=== PATIENT | female | born 1940 | race Caucasian/White ===

== ENCOUNTER → 2020-01-11 | Outpatient (CLI) | payer MEDICARE, OTHER | END | disposition home or self-care (01) | LOC: RAD 18:37 | PROVIDERS: ATTEND Family Medicine | DX: K72.90 Hepatic failure, unspecified without coma (principal); K76.0 Fatty (change of) liver, not elsewhere classified; I25.10 Atherosclerotic heart disease of native coronary artery without angina pectoris; Z90.49 Acquired absence of other specified parts of digestive tract; N28.1 Cyst of kidney, acquired; M51.37 Other intervertebral disc degeneration, lumbosacral region; M48.57XA Collapsed vertebra, not elsewhere classified, lumbosacral region, initial encounter for fracture; N28.9 Disorder of kidney and ureter, unspecified | CPT/HCPCS: 36415; 74176; 82565 ==

== ENCOUNTER 2020-02-09 12:47 | Emergency (ER) | payer MEDICARE, OTHER ==
[~2020-02-09] VITALS: Ht 165.1 cm; Wt 48.2 kg
[2020-02-09 13:48] LABS: BASOPHILS # (AUTO) 0.05 x10^3/uL (0-0.1); BASOPHILS % (AUTO) 1 % (0-1); EOSINOPHILS # (AUTO) 0.06 x10^3/uL (0-0.4); EOSINOPHILS % (AUTO) 1 % (1-7); LYMPHOCYTES # (AUTO) 3.02 x10^3/uL (1-3.4); LYMPHOCYTES % (AUTO) 33 % (22-44); MD NO; MEAN CORPUSCULAR HGB CONC 32.1 g/dL (32.4-35.8); MEAN CORPUSCULAR VOLUME 93.3 fL (80-100); MEAN PLATELET VOLUME 7.6 fL (7.4-10.4); MONOCYTES # (AUTO) 0.82 x10^3/uL (0.2-0.8); MONOCYTES % (AUTO) 9 % (2-9); NEUTROPHILS # (AUTO) 5.35 x10^3/uL (1.8-6.8); NEUTROPHILS % (AUTO) 58 % (42-75); PLATELET COUNT 329 x10^3/uL (130-400); RED BLOOD COUNT 3.74 x10^6/uL (3.82-5.3); RED CELL DISTRIBUTION WIDTH 13.6 % (9.6-15.2)
[2020-02-09 14:01] LABS: ALBUMIN 3.1 g/dL (3.4-5.0); ANION GAP 7 mmol/L (5-15); CALCIUM 9.3 mg/dL (8.5-10.1); CHLORIDE 106 mmol/L (98-107); CREATININE 1.42 mg/dL (0.55-1.02)
--- NOTE | 2020-02-09 14:17 | NUR ---
pt presents to ED with c/o longstanding urinary retention/leakage, pt states these sx have been present approx 1 year. pt notes constipation, also chronic, lbm yesterday. pt was seen by pcp this pm and sent to ED for bladder scan and yates. bladder scan completed post void, 425 mL. MD Davila notified, ordered RN to insert 2 way yates cath. Yates cath inserted, witnessed by SANDY Segura. pt cleansed prior to insertion with theraworx per policy. sterile technique maintained. pt reports relief of bladder distention, tolerated insertion well. urine sent to lab. yates cath draining yellow urine freely, clots and sediment noted. bp and spo2 monitors in place, call light in reach. awaiting lab/urine results and dispo.
[2020-02-09 14:31] LABS: MICROSCOPIC INDICATED
--- NOTE | 2020-02-09 14:57 | NUR ---
Report received from SANDY Connor. Mary checked, draining well. Awaiting lab work, then recheck with ERP.
--- NOTE | 2020-02-09 15:02 | NUR ---
report given to SANDY Mo at bedside. pt a&o, resps even and unlabored, nadn. bp and so2 monitors in place. all results back, chart up for recheck, awaiting MD and dispo.
[2020-02-09 15:24] VITALS: BP 126/54
[2020-02-09] MEDS ORDERED: CEFDINIR 300 MG CAPSULE ONE (15:39)
--- NOTE | 2020-02-09 15:41 | NUR ---
Patient medicated per emar, tolerated well.
[2020-02-09] MEDS ORDERED: CEFDINIR 300 MG CAPSULE PO ONE (16:00)
--- NOTE | 2020-02-09 17:00 | NUR ---
LATE ENTRY DUE TO PATIENT CARE: GORDON BAG SWITCHED TO LEG BAG, UPON STADING UP PATIENT REPORTS LARGE AMOUNT OF PAIN. PATIENT PLACED BACK IN [facility], NOTIFIED ERP. MD NAOMI INSTRUCTED TO IRRIGATE BLADDER, THEN RECHECK. BLADDER IRRIGATED WITH APPROXIMATELY 500CC STERILE SALINE, LARGE CLOTS REMOVED FROM BLADDER, PATIENT STILL HAS HEMATURIA, BUT NO CLOTS VISUALIZED AFTER IRRIGATION. WILL NOTIFY ERP, PATIENT STILL REPORTS PAIN WITH CATHETER
--- NOTE | 2020-02-09 17:15 | NUR ---
ERP TO ROOM FOR RE-EVALUATION. UPON REASSESSMENT, ERP, PATIENT, AND THIS RN AGREE UPON BEST COURSE OF ACTION IS TO TAKE CATHETER OUT DUE TO UNBARABLE PAIN.
--- NOTE | 2020-02-09 17:24 | NUR ---
GORDON REMOVED, PATIENT TOLERATED WELL. PAITENT STATES IMPROVEMENT OF PAIN IMMEDIATELY. WILL CONTINUE TO MONITOR PAITENT TO URINATE ON OWN BEFORE DC
--- NOTE | 2020-02-09 17:56 | NUR ---
PATIENT GIVEN PO FLUIDS TO ASSIST IN URGE TO URINATE ON OWN
--- NOTE | 2020-02-09 18:10 | NUR ---
PATIETN AMBULATORY WITH STEADY GAIT TO RESTROOM TO ATTEMPT TO URINATE
--- NOTE | 2020-02-09 18:22 | NUR ---
PATIENT ABLE TO URINATE ON OWN, GIVEN DISCHARGE INSTRUCTIONS AND INFO ON FOLLOW UP APPT. PATIENT CONFIRMS UNDERSTANDING, AND KNOWS TO RETURN TO ER IF UNABLE TO URINATE ON OWN. AMBULATORY WITH STEADY GAIT TO DISCHARGE WITH FAMILY MEMBER
== END 2020-02-09 18:24 | disposition home or self-care (01) ==
LOC: ED 14:26
DX: N30.01 Acute cystitis with hematuria (principal); R33.9 Retention of urine, unspecified; R30.0 Dysuria
CPT/HCPCS: 36415; 51702; 80048; 81001; 82040; 85025; 87086; 99284

== ENCOUNTER 2020-03-07 10:58 | Inpatient (IN) | payer MEDICARE, OTHER ==
[~2020-03-07] VITALS: Ht 165.1 cm; Wt 50.8 kg
--- NOTE | 2020-03-07 11:19 | NUR ---
Pt having intermittent n/v/d and fevers onset 2 weeks ago, seen at urgent care 1 week ago and given immodium, per family, pt has been intermittently altered and lethargic , recent uti several weeks ago, finished course of abx.Pt is a&ox4 at this time. Last dose of antipyretics yesterday. Pt in bed in gown with cont spo2, bpq 30 min. PA at bedside.
[2020-03-07 12:09] LABS: MEAN CORPUSCULAR HEMOGLOBIN 29.4 pg (27.0-34.8); MEAN PLATELET VOLUME 8.2 fL (7.4-10.4); PLATELET COUNT 420 x10^3/uL (130-400); RED BLOOD COUNT 3.18 x10^6/uL (3.82-5.3); RED CELL DISTRIBUTION WIDTH 13.8 % (9.6-15.2)
--- NOTE | 2020-03-07 12:09 | NUR ---
UA CATH DONE AND WALKED TO LAB
[2020-03-07 12:18] LABS: ALANINE AMINOTRANSFERASE 25 U/L (12-78); ALBUMIN 2.1 g/dL (3.4-5.0); ANION GAP 10 mmol/L (5-15); CALCIUM 8.6 mg/dL (8.5-10.1); CHLORIDE 93 mmol/L (98-107); CREATININE 4.05 mg/dL (0.55-1.02)
[2020-03-07 12:21] LABS: ALKALINE PHOSPHATASE 137 U/L (45-117); BILIRUBIN,TOTAL 0.4 mg/dL (0.2-1.0); TOTAL PROTEIN 6.8 g/dL (6.4-8.2)
[2020-03-07 12:24] LABS: MICROSCOPIC INDICATED
[2020-03-07 12:29] LABS: MD YES
[2020-03-07] MEDS ORDERED: SODIUM CHLORIDE 0.9% 1,000ML IVBOLUS ONE ×2 (12:30→13:00)
[2020-03-07] MEDS ORDERED: SODIUM CHLORIDE FLUSH 10ML SYR IVF ONE (12:30)
[2020-03-07 12:31] LABS: <PLATELET ESTIMATE> ADEQUATE; <PLT MORPHOLOGY> NORMAL PLT MORPH; <RBC MORPHOLOGY> NORMAL; BAND#(MANUAL) 0.89 x10^3/uL; BANDS%(MANUAL) 3 % (0-7); LYMPH#(MANUAL) 1.19 x10^3/uL (1-3.4); LYMPHS% (MANUAL) 4 % (22-44); METAMYELOCYTES% (MANUAL) 1 % (0-1); MONOS#(MANUAL) 0.89 x10^3/uL (0.3-2.7); MONOS% (MANUAL) 3 % (2-9); SEG#(MANUAL) 26.52 x10^3/uL (1.8-6.8); SEGS% (MANUAL) 89 % (42-75); TOXIC GRAN 1+
--- NOTE | 2020-03-07 12:32 | NUR ---
ct at [facility]-feel unsafe to preceed with cta as creatinine if 4. video technician to talk to Provider
--- NOTE | 2020-03-07 12:36 | NUR ---
to ct scan Addendum: 03/07/20 at [email or web address] without contrast
[2020-03-07] MEDS ORDERED: CEFTRIAXONE PMX 1GM/50ML 50 ML IVPB ONE (13:00)
[2020-03-07] MEDS ORDERED: CEFTRIAXONE PMX 1GM/50ML 50 ML ONE (13:28)
--- NOTE | 2020-03-07 14:21 | NUR ---
MEDICATED PER EMAR WITH ABX (2 BLOOD CULTURES ALREADY DRAWN) WELL ADDITIONAL 1L NS
--- NOTE | 2020-03-07 15:10 | NUR ---
1300ML OF FOAMY/CREAMY URINE NOTED WITH GORDON PLACEMENT
[2020-03-07] MEDS ORDERED: hydrALAzine 20 MG/ML, 1ML IVPush PRN (16:30)
[2020-03-07] MEDS ORDERED: POLYETHYLENE GLYCOL 17 GM PACKET PO PRN (16:30)
[2020-03-07] MEDS ORDERED: ACETAMINOPHEN 325 MG TABLET PO PRN (16:30)
[2020-03-07] MEDS ORDERED: BISACODYL 10 MG SUPP PR PRN (16:30)
[2020-03-07] MEDS ORDERED: ONDANSETRON ODT 4 MG PO PRN (16:30)
[2020-03-07] MEDS ORDERED: ONDANSETRON 2MG/ML, 2ML IVPush PRN (16:30)
[2020-03-07] MEDS ORDERED: MORPHINE SULFATE 4 MG/ML, 1ML IVPush PRN (16:30)
[2020-03-07] MEDS ORDERED: HYDROcodone/APAP 5/325 TABLET PO PRN (16:30)
[2020-03-07 16:49] LABS: % IRON SATURATION 8 % (20-55); IRON LEVEL 14 mcg/dL (50-170); TOTAL IRON BINDING CAPACITY 186 mcg/dL (250-450)
[2020-03-07] MEDS ORDERED: POTASSIUM CHLORIDE 20 MEQ TAB.ER.PRT PO ONE (17:00)
[2020-03-07] MEDS ORDERED: POTASSIUM CHLORIDE 20 MEQ TAB.ER.PRT ONE (17:25)
[2020-03-07] MEDS ORDERED: NICOTINE 14MG/24 HR PATCH.TD24 ONE (17:25)
[2020-03-07] MEDS: LACTATED RINGERS 1,000 ML IV SCH (17:45)
[2020-03-07] MEDS: NICOTINE 14MG/24 HR PATCH.TD24 TD SCH (17:46)
--- NOTE | 2020-03-07 17:46 | NUR ---
Eileen Minaya called for report for room 369. She reports room will be ready (be cleaned by 6:15p). She reports she will call when clean. Carli Rn made aware Dinner tray ordered medicated per emar
[2020-03-07 18:39] VITALS: BP 123/55
[2020-03-07] MEDS: MELATONIN 5 MG TABLET PO PRN (20:51)
[2020-03-08 00:49] VITALS: BP 106/62
[2020-03-08 05:54] LABS: MEAN CORPUSCULAR HEMOGLOBIN 29.9 pg (27.0-34.8); MEAN CORPUSCULAR HGB CONC 32.7 g/dL (32.4-35.8); MEAN CORPUSCULAR VOLUME 91.4 fL (80-100); MEAN PLATELET VOLUME 8.3 fL (7.4-10.4); PLATELET COUNT 360 x10^3/uL (130-400); RED BLOOD COUNT 2.73 x10^6/uL (3.82-5.3); RED CELL DISTRIBUTION WIDTH 13.9 % (9.6-15.2)
[2020-03-08 06:00] LABS: CHLORIDE 100 mmol/L (98-107)
[2020-03-08 06:15] LABS: ANION GAP 11 mmol/L (5-15); CALCIUM 8.3 mg/dL (8.5-10.1); CREATININE 3.52 mg/dL (0.55-1.02)
[2020-03-08 06:16] LABS: ALANINE AMINOTRANSFERASE 19 U/L (12-78); ALBUMIN 1.7 g/dL (3.4-5.0); ALKALINE PHOSPHATASE 108 U/L (45-117); BILIRUBIN,TOTAL 0.4 mg/dL (0.2-1.0); TOTAL PROTEIN 5.6 g/dL (6.4-8.2)
[2020-03-08 06:28] LABS: MD YES
[2020-03-08 06:30] LABS: <PLATELET ESTIMATE> ADEQUATE; <PLT MORPHOLOGY> NORMAL PLT MORPH; <RBC MORPHOLOGY> NORMAL; BAND#(MANUAL) 1.18 x10^3/uL; BANDS%(MANUAL) 6 % (0-7); LYMPH#(MANUAL) 1.37 x10^3/uL (1-3.4); LYMPHS% (MANUAL) 7 % (22-44); METAMYELOCYTES% (MANUAL) 1 % (0-1); MONOS#(MANUAL) 0.78 x10^3/uL (0.3-2.7); MONOS% (MANUAL) 4 % (2-9); SEG#(MANUAL) 16.07 x10^3/uL (1.8-6.8); SEGS% (MANUAL) 82 % (42-75); TOXIC GRAN 1+
[2020-03-08 07:33] VITALS: BP 105/93
[2020-03-08] MEDS ORDERED: CEFTRIAXONE PMX 1GM/50ML 50 ML IV SCH (09:00)
[2020-03-08] MEDS: LACTATED RINGERS 1,000 ML IV SCH (10:47)
[2020-03-08] MEDS: SENNA/DOCUSATE TABLET PO SCH (10:48)
[2020-03-08 13:49] VITALS: BP 107/57
[2020-03-08] MEDS: NICOTINE 14MG/24 HR PATCH.TD24 TD SCH (18:13)
[2020-03-08 19:28] LABS: CLOSTRIDIUM DIFFICILE ANTIGEN NEGATIVE; CLOSTRIDIUM DIFFICILE TOXIN NEGATIVE (Negative)
[2020-03-08 19:37] VITALS: BP 108/65
[2020-03-08 20:38] LABS: OCCULT BLOOD POSITIVE (NEGATIVE)
[2020-03-08 20:58] LABS: STOOL FOR LEUKOCYTES NONE SEEN (NEGATIVE)
[2020-03-08] MEDS: MELATONIN 5 MG TABLET PO PRN (23:08)
[2020-03-09 00:52] VITALS: BP 117/67
[2020-03-09 05:55] LABS: MEAN CORPUSCULAR HEMOGLOBIN 29.5 pg (27.0-34.8); MEAN CORPUSCULAR HGB CONC 31.9 g/dL (32.4-35.8); MEAN CORPUSCULAR VOLUME 92.3 fL (80-100); MEAN PLATELET VOLUME 7.7 fL (7.4-10.4); PLATELET COUNT 406 x10^3/uL (130-400); RED BLOOD COUNT 2.88 x10^6/uL (3.82-5.3); RED CELL DISTRIBUTION WIDTH 13.7 % (9.6-15.2)
[2020-03-09 06:04] LABS: ANION GAP 7 mmol/L (5-15); CALCIUM 8.3 mg/dL (8.5-10.1); CHLORIDE 105 mmol/L (98-107); CREATININE 3.09 mg/dL (0.55-1.02)
[2020-03-09 06:22] LABS: BASOPHILS # (AUTO) 0.04 x10^3/uL (0-0.1); BASOPHILS % (AUTO) 0 % (0-1); EOSINOPHILS # (AUTO) 0.03 x10^3/uL (0-0.4); EOSINOPHILS % (AUTO) 0 % (1-7); LYMPHOCYTES # (AUTO) 2.27 x10^3/uL (1-3.4); LYMPHOCYTES % (AUTO) 14 % (22-44); MD SCAN; MONOCYTES # (AUTO) 0.93 x10^3/uL (0.2-0.8); MONOCYTES % (AUTO) 6 % (2-9); NEUTROPHILS # (AUTO) 12.84 x10^3/uL (1.8-6.8); NEUTROPHILS % (AUTO) 80 % (42-75)
[2020-03-09 07:06] VITALS: BP 116/62
[2020-03-09] MEDS: SENNA/DOCUSATE TABLET PO SCH (09:00)
[2020-03-09] MEDS: LACTATED RINGERS 1,000 ML IV SCH ×2 (09:02→23:34)
[2020-03-09] MEDS: CIPROFLOXACIN/PMX 400MG/200ML 200 ML IV SCH (10:24)
[2020-03-09 13:35] VITALS: BP 94/47
[2020-03-09] MEDS: NICOTINE 14MG/24 HR PATCH.TD24 TD SCH (18:44)
[2020-03-09 20:34] VITALS: BP 103/57
[2020-03-10 01:45] VITALS: BP 121/58
[2020-03-10 06:11] LABS: BASOPHILS # (AUTO) 0.01 x10^3/uL (0-0.1); BASOPHILS % (AUTO) 0 % (0-1); EOSINOPHILS % (AUTO) 1 % (1-7); LYMPHOCYTES # (AUTO) 2.31 x10^3/uL (1-3.4); LYMPHOCYTES % (AUTO) 17 % (22-44); MD NO; MEAN CORPUSCULAR HEMOGLOBIN 30.2 pg (27.0-34.8); MEAN CORPUSCULAR HGB CONC 32.8 g/dL (32.4-35.8); MEAN CORPUSCULAR VOLUME 91.9 fL (80-100); MEAN PLATELET VOLUME 7.9 fL (7.4-10.4); MONOCYTES # (AUTO) 0.93 x10^3/uL (0.2-0.8); MONOCYTES % (AUTO) 7 % (2-9); NEUTROPHILS # (AUTO) 9.99 x10^3/uL (1.8-6.8); NEUTROPHILS % (AUTO) 75 % (42-75); PLATELET COUNT 382 x10^3/uL (130-400); RED BLOOD COUNT 2.71 x10^6/uL (3.82-5.3); RED CELL DISTRIBUTION WIDTH 13.8 % (9.6-15.2)
[2020-03-10 06:25] LABS: ANION GAP 7 mmol/L (5-15); CALCIUM 8.2 mg/dL (8.5-10.1); CHLORIDE 107 mmol/L (98-107)
[2020-03-10 06:28] LABS: CREATININE 2.75 mg/dL (0.55-1.02)
[2020-03-10 08:30] VITALS: BP 104/55
[2020-03-10] MEDS: CIPROFLOXACIN/PMX 400MG/200ML 200 ML IV SCH (09:32)
[2020-03-10] MEDS: SENNA/DOCUSATE TABLET PO SCH (09:32)
[2020-03-10] MEDS ORDERED: CIPR250T27 PO (12:09)
[2020-03-10] MEDS: LACTATED RINGERS 1,000 ML IV SCH (12:20)
[2020-03-10 15:23] VITALS: BP 114/66
== END 2020-03-10 16:14 | disposition home health service (06) | DRG 871 ==
LOC: ED 12:32 → EDIP 14:31 → 3N 18:11
PROVIDERS: ADMIT Internal Medicine; ATTEND Hospitalist
PROC: 0T9B70Z Drainage of Bladder with Drainage Device, Via Natural or Artificial Opening (ICD-10-PCS; principal; 2020-03-07)
DX: A41.9 Sepsis, unspecified organism (principal); G93.41 Metabolic encephalopathy; I63.81 Other cerebral infarction due to occlusion or stenosis of small artery; N13.6 Pyonephrosis; N17.9 Acute kidney failure, unspecified; E87.1 Hypo-osmolality and hyponatremia; N31.9 Neuromuscular dysfunction of bladder, unspecified; M51.36 Other intervertebral disc degeneration, lumbar region; E87.6 Hypokalemia; E86.1 Hypovolemia; B96.5 Pseudomonas (aeruginosa) (mallei) (pseudomallei) as the cause of diseases classified elsewhere; D64.9 Anemia, unspecified; F17.210 Nicotine dependence, cigarettes, uncomplicated; N28.1 Cyst of kidney, acquired; N32.0 Bladder-neck obstruction; G89.29 Other chronic pain; M54.5 Low back pain; N81.10 Cystocele, unspecified; Z80.0 Family history of malignant neoplasm of digestive organs; Z90.49 Acquired absence of other specified parts of digestive tract; Z89.411 Acquired absence of right great toe
CPT/HCPCS: 36415; 70450; 71045; 74176; 80048; 80053; 81001; 82272; 82607; 83036; 83540; 83550; 83605; 83690; 83735; 84100; 84145; 84443; 85025; 87040; 87077; 87086; 87186; 87324; 89055; 93005; 99291; G0378; J0696; J0744; J7030; J7120